=== PATIENT | male | born 1970 | race Caucasian/White ===

== ENCOUNTER 2017-07-02 20:47 | Emergency (ER) | payer SELFPAY ==
[2017-07-02 20:57] VITALS: BP 121/71; PULSE 73; TEMP 97.9; BMI 27.1
[2017-07-02] MEDS ORDERED: DIPHTH,PERTUSS(ACELL),TET 0.5 ML DISP.SYRIN IM ONE (20:57)
--- NOTE | 2017-07-02 20:58 | PDOC ---
Rapid Medical Evaluation Time Seen by Provider: 07/02/17 20:54 Medical Evaluation: 07/02/17 20:54 I have performed a brief in person evaluation of this patient. The patient presents with chief complaint of : left eye FB sent from urgent care , pt has a piece of metal in the eye . Pertinent PE findings: left eye injected , fb to the eye I have ordered the following:boostrix tetanus The patient will proceed to the ER for further evaluation.
[2017-07-03] MEDS ORDERED: traMADol HCL 50 MG TABLET ONE (00:49)
--- NOTE | 2017-07-03 01:04 | PDOC ---
History of Present Illness - General Chief Complaint: Eye Problem Stated Complaint: EYE PROBLEM Time Seen by Provider: 07/02/17 20:54 Past History - Past Medical History Allergies/Adverse Reactions: Allergies Allergy/AdvReac Type Severity Reaction Status Date / Time No Known Allergies Allergy Verified 07/02/17 20:54 Home Medications: Ambulatory Orders Ofloxacin 0.3% Ophth Soln [Ocuflox -] 1 drop OU Q2H #90 drops 07/03/17 Tramadol HCl 50 mg PO TID #9 tablet MDD 3 07/03/17 COPD: No - Suicide/Smoking/Psychosocial Hx Smoking History: Never smoked *Physical Exam - Vital Signs Last Vital Signs Temp Pulse Resp BP Pulse Ox 97.9 F 73 18 121/71 98 07/02/17 20:55 07/02/17 20:55 07/02/17 20:55 07/02/17 20:55 07/02/17 20:55 ED Treatment Course - Medications Given in the ED: ED Medications Discontinued Medications Generic Name Dose Route Start Last Admin Trade Name Freq PRN Reason Stop Dose Admin Diphtheria/Tetanus/Acell Pertussis 0.5 ml 07/02/17 20:57 07/02/17 23:42 Boostrix - IM 07/02/17 20:58 0.5 ml .ONCE ONE Administration *DC/Admit/Observation/Transfer Diagnosis at time of Disposition: Corneal abrasion, left Qualifiers: Encounter type: initial encounter Qualified Code(s): S05.02XA - Injury of conjunctiva and corneal abrasion without foreign body, left eye, initial encounter - Discharge Dispostion Disposition: HOME Condition at time of disposition: Stable Admit: No - Referrals Referrals: Clint Rob MD [Primary Care Provider] - Aakash Kerns MD [Staff Physician] - - Patient Instructions Printed Discharge Instructions: DI for Corneal Abrasion Additional Instructions: You have a corneal abrasion or scratch on your L eye. This is what is causing her eye pain. He was probably due to the metal that your working with today. Your tetanus shot was updated today. There is no foreign body appreciated on your exam, however he needs to follow up with ophthalmology first thing tomorrow morning. Your prescribed eye drops please taken as directed. You were also prescribed medicine as needed for pain. Do not drive after taking this medication as it may make you sleepy. Return to the ED if you have worsening eye pain, changes in your vision, light headedness, fevers or any changes in your symptoms - Post Discharge Activity Forms/Work/School Notes: Back to Work
== END 2017-07-03 01:14 | disposition home or self-care (01) ==
LOC: JER 20:47 → JERFT 20:47
PROC: 3E0234Z Introduction of Serum, Toxoid and Vaccine into Muscle, Percutaneous Approach (ICD-10-PCS; principal; 2017-07-02)
DX: S05.02XA Injury of conjunctiva and corneal abrasion without foreign body, left eye, initial encounter (principal); X58.XXXA Exposure to other specified factors, initial encounter; Y93.89 Activity, other specified; Y92.9 Unspecified place or not applicable
CPT/HCPCS: 90715; 99281-25

== ENCOUNTER 2021-03-30 23:01 | Emergency (ER) | payer OTHER ==
[2021-03-30 23:07] VITALS: TEMP 97.7; BMI 27.1
[2021-03-31] MEDS ORDERED: IPRATROPIUM BR 0.02% 0.5 MG/2.5 ML VIAL.NEB. NEB ONE (00:15)
[2021-03-31] MEDS ORDERED: ALBUTEROL SO4 0.083% IH SOL 2.5 MG/3 ML VIAL.NEB. NEB ONE (00:15)
[2021-03-31] MEDS ORDERED: DEXAMETHASONE SOD PHOSPHATE 4 MG/1 ML VIAL IVPUSH ONE (00:16)
[2021-03-31] MEDS ORDERED: DEXAMETHASONE SOD PHOSPHATE 10 MG/1 ML VIAL ONE (00:18)
[2021-03-31] MEDS ORDERED: ALBUTEROL SO4 2.5/IPRATROPIUM 0.5 INH SOL 3 ML VIAL.NEB. NEB ONE (00:34)
[2021-03-31 01:03] LABS: BASO % 0.8 % (0-2.0); EOS % 6.6 % (0-4.5); HEMATOCRIT 43.2 % (35.4-49); HEMOGLOBIN 14.8 GM/dL (11.7-16.9); LYMPH % 31.9 % (8-40); MCH 30.3 pg (25.7-33.7); MCHC 34.4 g/dl (32.0-35.9); MEAN CELL VOLUME 88.1 fl (80-96); MEAN PLT VOLUME 8.6 fl (7.5-11.1); MONO % 7.6 % (3.8-10.2); NEUT % 53.1 % (42.8-82.8); PLATELET COUNT 107 10^3/uL (134-434); RDW 12.9 % (11.9-15.9); WHITE BLOOD COUNT 5.1 K/mm3 (4.0-10.0)
[2021-03-31 01:13] LABS: INR 1.03 (0.83-1.09); PROTHROMBIN TIME (PATIENT) 12.4 SEC (9.7-13.0)
[2021-03-31 01:16] LABS: ACTIVATED PTT 33.8 SECONDS (25.2-36.5)
[2021-03-31 01:28] LABS: CALCIUM 8.4 mg/dL (8.5-10.1)
[2021-03-31 01:29] LABS: ALBUMIN 3.5 g/dl (3.4-5.0); BLOOD UREA NITROGEN 22.3 mg/dL (7-18)
[2021-03-31 01:31] LABS: CREATININE 1.1 mg/dL (0.55-1.3)
[2021-03-31 01:33] LABS: BILIRUBIN,TOTAL 0.2 mg/dL (0.2-1); TOT PROT 6.8 g/dl (6.4-8.2)
[2021-03-31 02:20] VITALS: BP 110/68; PULSE 70
== END 2021-03-31 02:24 | disposition home or self-care (01) ==
LOC: JER 23:01
PROC: 3E0F7GC Introduction of Other Therapeutic Substance into Respiratory Tract, Via Natural or Artificial Opening (ICD-10-PCS; principal; 2021-03-30)
PROC: 3E033GC Introduction of Other Therapeutic Substance into Peripheral Vein, Percutaneous Approach (ICD-10-PCS; 2021-03-30)
DX: J45.909 Unspecified asthma, uncomplicated (principal)
CPT/HCPCS: 36415; 80053; 85025; 85379; 85610; 85730; 99284-25

== ENCOUNTER 2021-05-15 14:32 | Emergency (ER) | payer OTHER ==
[2021-05-15 14:53] VITALS: BP 136/80; PULSE 93; TEMP 98; BMI 27.1
[2021-05-15] MEDS ORDERED: ACETAMINOPHEN 500 MG TABLET (FP) PO ONE (16:01)
== END 2021-05-15 17:40 | disposition home or self-care (01) ==
LOC: JERFT 14:32
DX: S05.01XA Injury of conjunctiva and corneal abrasion without foreign body, right eye, initial encounter (principal)
CPT/HCPCS: 99283-25

== ENCOUNTER 2022-08-10 08:31 | Emergency (ER) | payer OTHER ==
[2022-08-10 08:35] VITALS: BP 103/67; PULSE 88; RESP 18; TEMP 100.6; BMI 28.5
[2022-08-10] MEDS ORDERED: ALBUTEROL SO4 2.5/IPRATROPIUM 0.5 INH SOL 3 ML VIAL.NEB. NEB ONE (09:35)
[2022-08-10] MEDS ORDERED: ACETAMINOPHEN 500 MG TABLET (FP) PO ONE (09:35)
[2022-08-10] MEDS ORDERED: predniSONE 20 MG TABLET (UD) PO ONE (09:35)
[2022-08-10] MEDS ORDERED: predniSONE 20 MG TABLET (UD) ONE (10:29)
[2022-08-10] MEDS ORDERED: ACETAMINOPHEN 500 MG TABLET (FP) ONE (10:29)
== END 2022-08-10 10:48 | disposition home or self-care (01) ==
LOC: JER 08:31
DX: J09.X2 Influenza due to identified novel influenza A virus with other respiratory manifestations (principal); R05.1 Acute cough; R50.9 Fever, unspecified
CPT/HCPCS: 0241U-QW; 71046-TC-FY; 99285-25

== ENCOUNTER 2022-08-31 04:06 | Day surgery (SDC) | payer OTHER ==
[2022-08-29 13:25] VITALS: BMI 28.5
[2022-08-31 09:21] VITALS: RESP 15; TEMP 98
[2022-08-31 09:22] VITALS: BP 109/77; PULSE 57
== END 2022-08-31 09:30 | disposition home or self-care (01) ==
LOC: JASU-ENDO 04:06
PROVIDERS: ATTEND Internal Medicine Gastroenterology
PROC: 0DBL8ZX Excision of Transverse Colon, Via Natural or Artificial Opening Endoscopic, Diagnostic (ICD-10-PCS; 2022-08-31)
PROC: 0DBN8ZX Excision of Sigmoid Colon, Via Natural or Artificial Opening Endoscopic, Diagnostic (ICD-10-PCS; 2022-08-31)
PROC: 0DBH8ZX Excision of Cecum, Via Natural or Artificial Opening Endoscopic, Diagnostic (ICD-10-PCS; principal; 2022-08-31 08:00)
DX: Z12.11 Encounter for screening for malignant neoplasm of colon (principal); D12.0 Benign neoplasm of cecum; D12.3 Benign neoplasm of transverse colon; D12.5 Benign neoplasm of sigmoid colon; D12.7 Benign neoplasm of rectosigmoid junction
CPT/HCPCS: 88305-TC